=== PATIENT | male | born 1965 | race Caucasian/White ===

== ENCOUNTER 2018-05-30 20:22 | Inpatient (IN) | payer OTHER ==
[~2018-05-30] VITALS: Ht 152.4 cm; Wt 156.5 kg
[~2018-05-30 20:22] MED LIST: ALEVE220 MG PO; APAP500 PO; ASPIRIN EC325 MG PO; ASPIRIN325 PO; CARVEDILOL12.5 MG PO; CELEBREX 200 M200 M1 PO; FISH OIL 1,001000 M2 PO; IBUPROFEN 800800 M1 PO; LISINOPRIL5 MG PO; MEDROLDOSEPACK PO; MULTIVITAMINS1 EAC7 PO; NEURONTIN300 MG PO; NORCO 5-325 TA1 EACH PO; OXYCODONE HCL 55 MG PO; PERCOCET 5-3251 EACH PO; PERCOCET PO; TOPROL XL50 MG PO; VITAMIN C100 MG PO; XARELTO10 MG PO
[2018-05-30 20:26] VITALS: BP 104/52
[2018-05-30] MEDS ORDERED: NEXIUM40 MG PO (20:34)
[2018-05-30] MEDS ORDERED: MAGOX 400400 MG PO (20:34)
[2018-05-30] MEDS ORDERED: INVOKANA100 MG PO (20:35)
[2018-05-30] MEDS ORDERED: METFORMIN HCL500 MG PO (20:35)
[2018-05-30] MEDS ORDERED: VITAMIN D1000 UNI1 PO (20:37)
[2018-05-30 21:08] LABS: ABSOLUTE EOSINOPHILS 0.2 thou/uL (0.0-0.7); ABSOLUTE LYMPHOCYTES 1.4 thou/uL (0.8-5.3); ABSOLUTE MONOCYTES 0.9 thou/uL (0.0-1.2); BASOPHILS 0.3 %; EOSINOPHILS 1.7 %; HEMOGLOBIN 13.2 gm/dL (14.0-18.0); LYMPHOCYTES 13.1 %; MCH 25.9 pg (26.0-34.0); MCHC 31.4 g/dL (28.0-37.0); MCV 82.6 fL (80.0-100.0); MONOCYTES 8.7 %; MPV 9.3 fl. (7.2-11.1); NUCLEATED RBCS 0 /100WBC; PLATELET COUNT* 226 thou/uL (150-400); POLYS 76.2 %; RBC 5.08 mil/uL (4.50-6.00); RDW-CV 15.1 % (10.5-14.5); WBC 10.5 thou/uL (4.0-11.0)
[2018-05-30 21:11] LABS: ANION GAP 4 mmol/L (7-16); BUN 24 mg/dL (7-18); CALCIUM 8.9 mg/dL (8.5-10.1); CHLORIDE 104 mmol/L (98-107); CO2 31 mmol/L (21-32); CREATININE 1.2 mg/dL (0.6-1.3); GLUCOSE 136 mg/dL (70-99); POTASSIUM 4.9 mmol/L (3.5-5.1); SODIUM 139 mmol/L (136-145)
[2018-05-30 21:22] LABS: ALBUMIN 3.6 g/dL (3.4-5.0); ALKALINE PHOSPHATASE 159 U/L (46-116); LIPASE 169 U/L (73-393); NT-PRO BRAIN NAT PEPTIDE 45 pg/mL (<300); SGOT 17 U/L (15-37); SGPT 37 U/L (30-65); TOTAL BILIRUBIN 0.2 mg/dL (<0.1-1.0); TOTAL PROTEIN 7.2 g/dL (6.4-8.2); TROPONIN-I LEVEL <0.06 ng/mL (<0.06)
[2018-05-30 21:30] LABS: APTT 23.3 Seconds (25.0-31.3); PROTIME 10.3 Seconds (9.20-11.50)
[2018-05-30 23:15] VITALS: BP 115/65
[2018-05-30 23:30] VITALS: BP 136/79
[2018-05-31 04:00] VITALS: BP 117/64
[2018-05-31 08:00] VITALS: BP 119/78
[2018-05-31 11:40] VITALS: BP 129/87
--- NOTE | 2018-05-31 14:31 | EKG ---
[place] [address] ELECTROCARDIOGRAM REPORT Name: ASH KIMBALLN Room: [address] ADM IN M.R.#: [id number] Admission: 05/30/18 Attend Phys: Michelle Navarro MD Discharge: Date of : 63 Report #: [id number] THIS REPORT FOR: //name// [facility] ED Test Date: 2018-05-30 Test Time: 20:28:41 Pat Name: ASH KIMBALL Department: Room: [facility] Gender: M Band Sawyer: : 1965 Requested By: Myranda Niño Order Number: [id number] MD: Joseph Garay Measurements Intervals Busy Rate: 66 P: -6 GA: 175 QRS: 3 QRSD: 98 T: -1 QT: 396 QTc: 415 Interpretive Statements Sinus rhythm Compared to ECG 06/30/2015 01:52:36 No significant changes Electronically Signed On 05-31-2018 14:31:24 ANESTHESIOLOGY FACULTY by Joseph Garay [email or web address] <ELECTRONICALLY SIGNED> By: Joseph Garay MD, [facility] 05/31/18 1431 27 27 Joseph Garay MD, FACC /EPI
--- NOTE | 2018-05-31 15:48 | 2DMMODE ---
[place] [address] 2 D/M-MODE ECHOCARDIOGRAM Name: ASH KIMBALLN Room: [address] IN [facility]#: [id number] Admission: 05/30/18 Attend Phys: Michelle Navarro MD Discharge: Date of : 63 Date of Service: 05/31/18 1548 Report #: [id number] THIS REPORT FOR: //name// APPROVED REPORT Study performed: 05/31/2018 14:53:23 EXAM: Comprehensive 2D, Doppler, and color-flow Echocardiogram Patient Location: In-Patient Room #: 220 Status: routine BSA: 2.63 HR: 53 bpm BP: 129/87 mmHg Rhythm: NSR Other Information Study Quality: Excellent Indications Chest Pain 2D Dimensions IVSd: 15.98 (7-11mm) LVOT Diam: 21.33 (18-24mm) LVDd: 57.77 mm PWd: 12.05 (7-11mm) Ascending Ao: 40.27 (22-36mm) LVDs: 37.60 (25-40mm) Aortic Root: 37.74 mm Volumes Left Atrial Volume (Systole) LA ESV Index: 28.40 mL/m2 Aortic Valve AoV Peak Jai.: 1.52 m/s AO Peak Gr.: 9.26 mmHg LVOT Max P.94 mmHg AO Mean Gr.: 4.61 mmHg LVOT Mean P.73 mmHg LVOT Max V: 0.99 m/s AO V2 VTI: 30.84 cm LVOT Mean V: 0.59 m/s BART (VTI): 3.04 cm2 LVOT V1 VTI: 26.19 cm Mitral Valve E/A Ratio: 1.04 MV Decel. Time: 280.55 ms MV E Max Jai.: 0.93 m/[place] [address] 2 D/M-MODE ECHOCARDIOGRAM Name: ASH KIMBALL Room: [address] IN ..#: [id number] Admission: 05/30/18 Attend Phys: Michelle Navarro MD Discharge: Date of : 63 Date of Service: 05/31/18 1548 Report #: [id number] MV PHT: 81.36 ms MVA (PHT): 2.70 cm2 TDI E/Lateral E': 9.30 E/Medial E': 9.30 Medial E' Jai.: 0.10 m/s Lateral E' Jai.: 0.10 m/s Pulmonary Valve PV Peak Jai.: 1.14 m/s PV Peak Gr.: 5.22 mmHg Left Ventricle The left ventricle is normal size. There is normal LV segmental wall motion. Mild concentric left ventricular hypertrophy. Left ventricular systolic function is normal. LVEF is 55-60%. Transmitral Doppler flow pattern suggests impaired LV relaxation. Right Ventricle The right ventricle is normal size. The right ventricular systolic function is normal. Atria Left atrium is mildly dilated. Right atrium is mildly dilated. Aortic Valve The aortic valve is normal in structure. No aortic regurgitation is present. There is no aortic valvular stenosis. Mitral Valve The mitral valve is normal in structure. Trace mitral regurgitation. No evidence of mitral valve stenosis. Tricuspid Valve The tricuspid valve is normal in structure. Unable to assess PA pressure. Trace tricuspid regurgitation. Pulmonic Valve The pulmonary valve is normal in structure. There is no pulmonic valvular regurgitation. Great Vessels The aortic root is normal in size. IVC is normal in size and collapses >50% [place] [address] 2 D/M-MODE ECHOCARDIOGRAM Name: ASH KIMBALL Room: [address] IN [facility]#: [id number] Admission: 05/30/18 Attend Phys: Michelle Navarro MD Discharge: Date of : 63 Date of Service: 05/31/18 1548 Report #: [id number] There is no pericardial effusion. <Conclusion> The left ventricle is normal size. Mild concentric left ventricular hypertrophy. Left ventricular systolic function is normal. LVEF is 55-60%. Transmitral Doppler flow pattern suggests impaired LV relaxation. Left atrium is mildly dilated. Right atrium is mildly dilated. Trace mitral regurgitation. IVC is normal in size and collapses >50% with inspiration. <ELECTRONICALLY SIGNED> By: Joseph Garay MD, FACC 05/31/18 1548 1548 1548 Joseph Garay MD, FACC /INF
[2018-05-31 16:00] VITALS: BP 145/79
[2018-05-31 20:00] VITALS: BP 114/69
[2018-06-01] VITALS: BP 86/42
[2018-06-01 00:35] VITALS: BP 96/50
[2018-06-01 04:00] VITALS: BP 112/71
[2018-06-01 05:58] LABS: HEMATOCRIT 44.5 % (42.0-52.0); MCH 26.5 pg (26.0-34.0); MCHC 31.6 g/dL (28.0-37.0); MCV 83.9 fL (80.0-100.0); MPV 9.6 fl. (7.2-11.1); RBC 5.3 mil/uL (4.50-6.00); RDW-CV 15.6 % (10.5-14.5); WBC 7.7 thou/uL (4.0-11.0)
[2018-06-01 06:26] LABS: ALBUMIN 3.5 g/dL (3.4-5.0); CALCIUM 8.9 mg/dL (8.5-10.1); CREATININE 0.9 mg/dL (0.6-1.3); MAGNESIUM 2.1 mg/dL (1.8-2.4); TOTAL BILIRUBIN 0.5 mg/dL (<0.1-1.0); TOTAL PROTEIN 6.7 g/dL (6.4-8.2)
[2018-06-01 08:00] VITALS: BP 111/70
[2018-06-01 11:25] VITALS: BP 111/70
[2018-06-01] MEDS ORDERED: LIPITOR 20 MG T20 M1 PO (11:25)
--- NOTE | 2018-06-01 12:25 | CARDNUC ---
[place] [address] CARDIAC NUCLEAR IMAGING REPORT Name: JIGARASH CORDOVA Room: [address] IN [facility]#: [id number] Admission: 05/30/18 Attend Phys: Michelle Navarro MD Discharge: Date of : 63 Date of Service: 06/01/18 1225 Report #: [id number] THIS REPORT FOR: //name// APPROVED REPORT Study performed: 05/31/2018 11:33:00 Indication: Chest pain, Dizziness, Syncope Patient Location: In-Patient Room #: 220 Stress Tech: Daysi Olson Stress Nurse: Shwetha Mix RN Ht: 5 ft 10 in Wt: 330 lbs BSA: 2.58 m2 BMI: 47.34 Medical History Medical History: Angina, HTN, Diabetes, Former Smoker, Obesity , Syncope, Dizziness., CHF Medications: Atorvastatin, Carvedilol, Lisinopril Allergies: No known drug allergies Cardiac Risk Factors: Age, DM, FHX of CAD, HTN, SOB, Tobacco History (Former), COPD, Obesity, CHF Previous Cardiac Procedures: None Pretest Chest Pain Characteristics: No chest pain Exercise History: Physically active Physical Disabilities: SOA, Obesity, generalized weakness Meds Held (24 hrs): Carvedilol Resting Data Rest SPECT myocardial perfusion imaging was performed in supine position 40 minutes following the intravenous injection of 32.4 mCi of Tc-99m Sestamibi. Time of rest injection: 08:10 Date: 06/01/2018 The images were gated to evaluate regional wall motion and calculate left ventricular ejection fraction. Administration Route: IV Administration Site: Right AC Pharmacologic Stress Pharmacologic stress test was performed by injecting Regadenoson 0.4 mg IV push over 10-15 seconds immediately followed by the intravenous injection of 39.2 mCi of Tc-99m Sestamibi. Time of stress injection: 1445 Administration Route: [place] [address] CARDIAC NUCLEAR IMAGING REPORT Name: JIGARASH TASHA Room: [address] IN [facility].#: [id number] Admission: 05/30/18 Attend Phys: Michelle Navarro MD Discharge: Date of : 63 Date of Service: 06/01/18 1225 Report #: [id number] Administration Site: Right AC Heart Rate at time of stress injection: 86 bpm. Gated Stress SPECT was performed 40 minutes after stress injection. The images were gated to evaluate regional wall motion and calculate left ventricular ejection fraction. Prone imaging was performed. Stress Test Details Stress Test: Pharmacologic stress testing performed using 0.4 mg of regadenoson per 5 mL given IV over 10 seconds. Reason for pharmacologic stress test: physical limitation, generalized weakness, SOA. HR Max Heart Rate (APMHR): 166 bpm Resting HR: 48 bpm Target HR (85% APMHR): 141 bpm Max HR Achieved: 86 bpm % of APMHR: 51 Recovery HR: 70 bpm BP Resting BP: 102/73 mmHg Recovery BP: 135/79 mmHg ECG Resting ECG: Sinus Rhythm, normal EKG Stress ECG: Sinus Rhythm, normal EKG ST Change: None Arrhythmia: None Recovery ECG: Sinus Rhythm, normal EKG Recovery ST Change: None Recovery Arrhythmia: None Clinical Reason for Termination: Completed protocol Stress Symptoms: Weakness, Lightheaded Exercise duration: 0 min 0 sec Exercise capacity: 1.00 METs The patient tolerated Lexiscan infusion without significant symptoms. Nurse Comments 53 year old male presented with generalized weakness and SOA. Patient stated he was not able to walk on treadmill for any time with increasing weakness plus recent history of syncope. Patient tolerated sitting lexiscan well with minimal [place] [address] CARDIAC NUCLEAR IMAGING REPORT Name: ASH KIMBALL Room: [address]#: [id number] Admission: 05/30/18 Attend Phys: Michelle Navarro MD Discharge: Date of : 63 Date of Service: 06/01/18 1225 Report #: [id number] Recovery unremarkable, patient escorted by staff via wheelchair to [facility] for images. Patient stable with no complaints at that time. Stress ECG Conclusion Baseline 12-lead EKG shows sinus rhythm with no significant ST or T wave abnormalities. EKGs obtained during and post Lexiscan infusion show sinus rhythm with no significant ST or T wave changes when compared baseline. There were no stress-induced arrhythmias. Study Quality Study: Good Artifact: Mild Diaphragmatic artifact Study Data At rest, the left ventricular ejection fraction was 62%.. Post stress, the left ventricular ejection was 64%.. TID = 1.05. Perfusion Mild photopenia as noted on resting images in the water wall consistent with diaphragmatic attenuation artifact. There is mild apical thinning that resolves with post stress prone imaging. No fixed or reversible defects are identified that would signify ischemia or infarct. Wall Motion Global LV systolic function appears normal. Nuclear Conclusion ECG Findings: negative for ischemia Clinical Findings: negative for ischemia Nuclear Findings: negative for ischemia Exercise Capacity: not assessed Left Ventricular Function: normal Risk Study: low Myocardial perfusion images show no defect to suggest infarct or ischemia. Left ventricular systolic function appears well-preserved on gated studies. This is a low risk study. <Conclusion> Baseline 12-lead EKG shows sinus rhythm with no significant ST or T wave abnormalities. EKGs obtained during [place] [address] CARDIAC NUCLEAR IMAGING REPORT Name: ASH KIMBALL Room: [address] IN [facility]#: [id number] Admission: 05/30/18 Attend Phys: Michelle Navarro MD Discharge: Date of : 63 Date of Service: 06/01/18 1225 Report #: [id number] show sinus rhythm with no significant ST or T wave changes when compared baseline. There were no stress-induced arrhythmias. <ELECTRONICALLY SIGNED> By: Joseph Garay MD, FACC 06/01/18 1225 1225 1225 Joseph Garay MD, FACC /INF
[2018-06-01] MEDS ORDERED: TUMS PO (13:24)
[2018-06-01 13:38] VITALS: BP 112/65
--- NOTE | 2018-06-02 09:27 | CON ---
[address] [address] CONSULTATION Name: ASH KIMBALL Room: [address] IN M.R.#: [id number] Admission: 05/30/18 Attend Phys: Michelle Navarro MD Discharge: 06/01/18 Date of : 63 Report #: [id number] THIS REPORT FOR: //name// CC: Michelle Kate DO DATE OF SERVICE: 05/31/2018 INDICATION: Near syncope. HISTORY OF PRESENT ILLNESS: The patient is a very pleasant 53-year-old gentleman with history of hypertension, diabetes, hyperlipidemia and heart failure. The patient had an episode while at a [employer] last night where he began to feel dizzy and broke out into a cold sweat. He states he felt like he was going to pass out. The symptoms resolved after approximately 5 minutes. He was given some juice by one of his members. He presented to the hospital for further evaluation. He had a second episode while preparing for a CT scan. The symptoms have then resolved. He reported some midsternal chest discomfort earlier in the day, but not with this episode. He also reported an episode of chest discomfort earlier in the week. Both of these episodes he states lasted about a minute. The second one was associated with cleaning activities. He had no radiation of the discomfort and no other associated symptoms. Several years ago, an echocardiogram suggested an ejection fraction of 45-50%. Subsequent echocardiogram after treatment of his blood pressure showed normal left ventricular systolic function. He remains on lisinopril and carvedilol for blood pressure. He does report that his blood pressure was significantly low when he first presented to the Emergency Room raising suspicion of possible orthostasis. PAST MEDICAL HISTORY: 1. Hypertension. 2. Type 2 diabetes mellitus. 3. Dyslipidemia. 4. Obstructive sleep apnea. 5. Chronic diastolic heart failure. CURRENT MEDICATIONS: Invokana 100 mg daily, carvedilol 12.5 mg b.i.d., vitamin D 1000 units daily, Nexium 40 mg daily, lisinopril 20 mg daily, magnesium oxide 400 mg daily, metformin 500 mg b.i.d., multivitamin 1 tablet daily. ALLERGIES: [place] [address] CONSULTATION Name: ASH KIMBALL Room: [address]#: [id number] Admission: 05/30/18 Attend Phys: Michelle Navarro MD Discharge: 06/01/18 Date of : 63 Report #: [id number] SOCIAL HISTORY: The patient does not smoke. He does not drink alcohol. He is . REVIEW OF SYSTEMS: A 14-point review of systems is as per HPI, otherwise unremarkable. PHYSICAL EXAMINATION: VITAL SIGNS: Stable. Blood pressure 119/78, pulse 58 and regular. GENERAL: This is a moderately obese, pleasant white male, in no distress. Mood and affect appropriate. HEENT: Extraocular muscles intact. Mucous membranes are moist. NECK: Shows no jugular venous distention. There are no carotid bruits. CHEST: Reveals clear lung barrett without wheezes or rales. CARDIOVASCULAR: Reveals a regular rhythm. Normal S1 and S2. I do not appreciate gallop or murmur. ABDOMEN: Reveals a protuberant abdomen, soft and nontender. Bowel sounds present. EXTREMITIES: Shows no edema. Peripheral pulses 2+ and easily palpable. SKIN: Warm and dry. A 12-lead EKG shows sinus rhythm with no significant ST or T-wave abnormalities. Labs are reviewed. Troponins are unremarkable. IMPRESSION AND RECOMMENDATIONS: 1. Near syncope and atypical chest pain. We will proceed with noninvasive stress testing and echocardiogram at this time. Further intervention will be pending results of that study. 2. History of heart failure in the past with systolic component. We will repeat echocardiogram at this time. Continue carvedilol and lisinopril. 3. Possible orthostasis. We will decrease the carvedilol dose as his blood pressure is low normal presently with slightly slow pulse rate. Continue lisinopril at current dose. 4. Diabetes. Per primary physician. 5. Hyperlipidemia. The patient recently started a statin agent. I would continue this with goal LDL of 70 or less. <ELECTRONICALLY SIGNED> By: Joseph Garay MD, FACC 06/02/18 0927 1140 [id number] Garay MD, FACC /nt
== END 2018-06-01 13:50 | disposition home or self-care (01) | DRG 315 ==
LOC: M.ERS 20:22 → M.TBA-ER 22:19 → M.2W 22:19
PROVIDERS: Personal Emergency Response Attendant; ADMIT Family Medicine
DX: I95.9 Hypotension, unspecified (principal); I50.42 Chronic combined systolic (congestive) and diastolic (congestive) heart failure; R07.89 Other chest pain; E78.5 Hyperlipidemia, unspecified; G47.33 Obstructive sleep apnea (adult) (pediatric); R55 Syncope and collapse; I11.0 Hypertensive heart disease with heart failure; E11.9 Type 2 diabetes mellitus without complications; K22.70 Barrett's esophagus without dysplasia; Z96.653 Presence of artificial knee joint, bilateral; Z87.891 Personal history of nicotine dependence; Z23 Encounter for immunization; Z79.899 Other long term (current) drug therapy

== ENCOUNTER 2018-06-26 13:18 | Inpatient (IN) | payer OTHER ==
[~2018-06-26] VITALS: Ht 177.8 cm; Wt 145.1 kg
[2018-06-26 03:40] VITALS: BP 142/79
[~2018-06-26 13:18] MED LIST changes: +INVOKANA100 MG PO; +LIPITOR 20 MG T20 M1 PO; +MAGOX 400400 MG PO; +METFORMIN HCL500 MG PO; +NEXIUM40 MG PO; +TUMS PO; +VITAMIN D1000 UNI1 PO
[2018-06-26 13:26] VITALS: BP 153/86
[2018-06-26 14:01] LABS: ABSOLUTE BASOPHILS 0.1 thou/uL (0.0-0.2); ABSOLUTE EOSINOPHILS 0.2 thou/uL (0.0-0.7); ABSOLUTE LYMPHOCYTES 1.4 thou/uL (0.8-5.3); ABSOLUTE MONOCYTES 1.2 thou/uL (0.0-1.2); BASOPHILS 0.6 %; EOSINOPHILS 1.6 %; HEMOGLOBIN 13.5 gm/dL (14.0-18.0); LYMPHOCYTES 12.2 %; MCH 26.1 pg (26.0-34.0); MCHC 31.5 g/dL (28.0-37.0); MCV 82.8 fL (80.0-100.0); MONOCYTES 9.8 %; NUCLEATED RBCS 0 /100WBC; PLATELET COUNT* 234 thou/uL (150-400); POLYS 75.8 %; RBC 5.19 mil/uL (4.50-6.00); RDW-CV 15.6 % (10.5-14.5); WBC 11.8 thou/uL (4.0-11.0)
[2018-06-26 14:12] LABS: CALCIUM 9.3 mg/dL (8.5-10.1); CREATININE 0.9 mg/dL (0.6-1.3); POTASSIUM 4.7 mmol/L (3.5-5.1)
[2018-06-26 14:17] LABS: ALBUMIN 4.1 g/dL (3.4-5.0); TOTAL BILIRUBIN 0.4 mg/dL (<0.1-1.0); TOTAL PROTEIN 7.5 g/dL (6.4-8.2); URIC ACID* 4.7 mg/dL (2.6-7.2)
[2018-06-26 15:04] LABS: ESR (SEDRATE) 1 mm/hr (0-20)
[2018-06-26 15:23] VITALS: BP 157/80
[2018-06-26 16:15] VITALS: BP 142/79
[2018-06-26 19:29] LABS: AMP/METHAMP Negative (Negative); BARBITURATES Negative (Negative); BENZODIAZEPINES Negative (Negative); COCAINE Negative (Negative); METHADONE Negative (Negative); OPIATES POSITIVE (Negative); PCP Negative (Negative); THC Negative (Negative)
[2018-06-26 20:30] VITALS: BP 137/70
[2018-06-27 04:37] LABS: ABSOLUTE EOSINOPHILS 0.1 thou/uL (0.0-0.7); ABSOLUTE LYMPHOCYTES 1.7 thou/uL (0.8-5.3); ABSOLUTE MONOCYTES 1.4 thou/uL (0.0-1.2); ABSOLUTE NEUTROPHILS 6.7 thou/uL (1.6-8.1); BASOPHILS 0.4 %; EOSINOPHILS 1.2 %; HEMATOCRIT 39.5 % (42.0-52.0); HEMOGLOBIN 12.7 gm/dL (14.0-18.0); LYMPHOCYTES 17.4 %; MCH 26.5 pg (26.0-34.0); MCHC 32.2 g/dL (28.0-37.0); MCV 82.4 fL (80.0-100.0); MONOCYTES 14.4 %; MPV 9.2 fl. (7.2-11.1); NUCLEATED RBCS 0 /100WBC; PLATELET COUNT* 210 thou/uL (150-400); POLYS 66.6 %; RDW-CV 15.2 % (10.5-14.5)
[2018-06-27 04:59] LABS: CALCIUM 8.9 mg/dL (8.5-10.1); CREATININE 0.8 mg/dL (0.6-1.3); POTASSIUM 4.3 mmol/L (3.5-5.1)
[2018-06-27 07:50] VITALS: BP 152/87
[2018-06-27 16:00] VITALS: BP 147/59
[2018-06-28] VITALS: BP 118/65
--- NOTE | 2018-06-28 07:57 | CON ---
[address] [address] CONSULTATION Name: ASH KIMBALL Room: [address] ADM IN M.R.#: [id number] Admission: 06/26/18 Attend Phys: Anup Kimble MD Discharge: Date of : 63 Report #: [id number] THIS REPORT FOR: //name// CC: Anup Pottsfritz Lavinia DATE OF SERVICE: 06/27/2018 INFECTIOUS DISEASE CONSULTATION ATTENDING PHYSICIAN: Anup Kimble M.D. REASON FOR EVALUATION: Right elbow pain, suspected inflammatory process, possible septic arthritis. HISTORY OF PRESENT ILLNESS: Chart reviewed, the patient examined. This is a 53-year-old man with a history of diabetes mellitus type 1 as well as hypertension and bilateral knee replacements, who apparently woke in the early a.m. the day prior to admission with complaints of right elbow pain. He is unaware of any antecedent injury. He had actually been up in the middle of the night and it was not notable at that point. Over the course of the next few hours, he progressively got worse to the point where he really had minimal range of motion and had to assist lifting his right upper extremity with his left. It was not clear if he had any fevers or chills. Appetite was fair. No pulmonary or gastrointestinal-related complaints. Due to progressive illness, he did present to the Emergency Room. Plain films were otherwise unremarkable. He has been evaluated by Orthopedic Surgery and started corticosteroids. He was given a dose of vancomycin. At this point, he is not overtly ill. He is obviously quite uncomfortable. ALLERGIES: None known. MEDICATIONS: Include cholecalciferol, lisinopril, multivitamin, prednisone, pantoprazole, atorvastatin, metformin, carvedilol, enoxaparin, oxycodone, Ketorolac, morphine, p.r.n. analgesics and antiemetics. PAST MEDICAL HISTORY: History of diabetes mellitus type 2, non-insulin requiring; hypertension; Bai's esophagus; cardiomyopathy with history of congestive heart failure; bilateral knee replacements; bilateral inguinal repairs as a child and previous tonsillectomy. SOCIAL HISTORY: Occasional ethanol. Nonsmoker. FAMILY HISTORY: Noncontributory. REVIEW OF SYSTEMS: Otherwise unremarkable, with the [place] [address] CONSULTATION Name: ASH KIMBALL Room: [address] IN [facility]#: [id number] Admission: 06/26/18 Attend Phys: Anup Kimble MD Discharge: Date of : 63 Report #: [id number] the history of present illness, including all 10 points. PHYSICAL EXAMINATION: GENERAL: He is alert, cooperative, appears to be generally well nourished, in [id number]-[id number] distress. He is quite careful with his right upper extremity. VITAL SIGNS: Temperature 98.4, pulse 70, respirations 16 and blood pressure 152/87. SKIN: Warm, dry. No rashes. HEENT: Otherwise, unremarkable. Extraocular muscles intact. There are no oral lesions. NECK: Supple. LUNGS: Clear to auscultation. HEART: Regular rate, without a murmur. ABDOMEN: Soft. He is obese, nontender. There are no peritoneal signs. EXTREMITIES: Lower extremities are unremarkable. Right upper extremity, about the elbow, he has decreased range of motion. It is quite exquisitely tender with manipulation in terms of flexion, particularly at the elbow joint. It is not overtly superficially inflamed in terms of redness. There is increased heat, may be some excess fluid, I suspect. GENITOURINARY: Deferred. RECTAL: Deferred. LABORATORY DATA: Blood cultures sterile thus far. Electrolytes: Sodium 140, potassium 4.3, chloride 102, bicarbonate 29, anion gap of 9 and BUN and creatinine 14 and 0.8. CBC: White count of 10.0, H and H 12.7 and 39.5, platelets of 210,000 and a monocytosis of 1400. Drug screen was positive for opioids. Lactic acid 1.2. CBC: White count 11.8, H and H 13.5 and 43 and platelets of 234,000; that was on admission. CRP of 4.9. ASSESSMENT AND PLAN: Right elbow pain and degree of inflammation. I do not have a great explanation or an alternative to infection noted. Given the corticosteroids, I think we will continue the empiric antimicrobials; vancomycin is a reasonable choice. Putting this together, I would have to conclude it is infectious, likely a bacteremic seeding. We will see how he does clinically. We may, at some point, need to see if we can aspirate fluid from the joint. Discussed with Orthopedic Surgery. <ELECTRONICALLY SIGNED> By: Brian Gill MD 06/28/18 0757 1054 21Joamber Gill MD /nt
[2018-06-28 08:30] VITALS: BP 132/77
[2018-06-28 13:35] LABS: BF RBC 6282 /mm3; TOTAL CELL COUNT 28979 /mm3
[2018-06-28 13:36] LABS: CLARITY CLOUDY; COLOR YELLOW; TOTAL VOLUME 6 ml
[2018-06-28 13:51] LABS: BF LYMPHOCYTES 2 %; BF POLYS 98 %; BF TISSUE 36 /100 WBC
[2018-06-28 16:00] VITALS: BP 143/78
[2018-06-28 17:06] LABS: SOURCE RT ELBOW FLUID
[2018-06-28 21:57] VITALS: BP 154/77
[2018-06-29 04:42] LABS: ABSOLUTE EOSINOPHILS 0.1 thou/uL (0.0-0.7); ABSOLUTE LYMPHOCYTES 1.9 thou/uL (0.8-5.3); ABSOLUTE MONOCYTES 1.1 thou/uL (0.0-1.2); ABSOLUTE NEUTROPHILS 6.3 thou/uL (1.6-8.1); BASOPHILS 0.3 %; EOSINOPHILS 0.6 %; HEMATOCRIT 38.7 % (42.0-52.0); HEMOGLOBIN 12.5 gm/dL (14.0-18.0); LYMPHOCYTES 20.7 %; MCH 26.8 pg (26.0-34.0); MCHC 32.2 g/dL (28.0-37.0); MCV 83.1 fL (80.0-100.0); MONOCYTES 11.5 %; MPV 9.4 fl. (7.2-11.1); NUCLEATED RBCS 0 /100WBC; PLATELET COUNT* 199 thou/uL (150-400); POLYS 66.9 %; RBC 4.65 mil/uL (4.50-6.00); RDW-CV 15.1 % (10.5-14.5); WBC 9.4 thou/uL (4.0-11.0)
[2018-06-29 04:57] LABS: CALCIUM 9.2 mg/dL (8.5-10.1); CREATININE 0.8 mg/dL (0.6-1.3)
[2018-06-29 08:02] VITALS: BP 144/83
[2018-06-29 11:47] VITALS: BP 144/83
[2018-06-29] MEDS ORDERED: PERCOCET PO (13:27)
[2018-06-29] MEDS ORDERED: IBUPROFEN 400400 M2 PO (13:28)
[2018-06-29 13:58] VITALS: BP 144/83
== END 2018-06-29 13:55 | disposition home or self-care (01) | DRG 554 ==
LOC: M.ERS 13:18 → M.TBA-ER 14:45 → M.3W 14:45
PROVIDERS: Nurse Practitioner Family; ADMIT Internal Medicine
PROC: 0R9L3ZZ Drainage of Right Elbow Joint, Percutaneous Approach (ICD-10-PCS; principal; 2018-06-28)
DX: M11.221 Other chondrocalcinosis, right elbow (principal); R65.10 Systemic inflammatory response syndrome (SIRS) of non-infectious origin without acute organ dysfunction; L03.113 Cellulitis of right upper limb; I42.9 Cardiomyopathy, unspecified; Z68.42 Body mass index [BMI] 45.0-49.9, adult; M25.421 Effusion, right elbow; E66.01 Morbid (severe) obesity due to excess calories; Z96.653 Presence of artificial knee joint, bilateral; I11.0 Hypertensive heart disease with heart failure; E11.9 Type 2 diabetes mellitus without complications; I50.9 Heart failure, unspecified; Z79.84 Long term (current) use of oral hypoglycemic drugs; Z79.899 Other long term (current) drug therapy

== ENCOUNTER 2020-07-28 07:43 | Emergency (ER) | payer OTHER ==
[~2020-07-28] VITALS: Ht 177.8 cm; Wt 147.4 kg
[~2020-07-28 07:43] MED LIST changes: +IBUPROFEN 400400 M2 PO
[2020-07-28] MEDS ORDERED: LISINOPRIL20 MG PO (07:55)
[2020-07-28] MEDS ORDERED: METFORMIN HCL500 M3 PO (07:55)
[2020-07-28] MEDS ORDERED: CARVEDILOL25 MG PO (07:55)
[2020-07-28] MEDS ORDERED: LIPITOR10 MG PO (07:56)
[2020-07-28] MEDS ORDERED: FARXIGA10 MG PO (07:56)
[2020-07-28 09:16] VITALS: BP 142/80
== END 2020-07-28 09:16 | disposition home or self-care (01) ==
LOC: M.ERS 07:43
DX: S06.0X0A Concussion without loss of consciousness, initial encounter (principal); I11.0 Hypertensive heart disease with heart failure; I50.9 Heart failure, unspecified; E11.9 Type 2 diabetes mellitus without complications; Z90.89 Acquired absence of other organs; Z79.899 Other long term (current) drug therapy; W01.0XXA Fall on same level from slipping, tripping and stumbling without subsequent striking against object, initial encounter; Y93.89 Activity, other specified; Y92.89 Other specified places as the place of occurrence of the external cause; Y99.8 Other external cause status